=== PATIENT | male | born 1965 | race Caucasian/White ===

== ENCOUNTER 2019-10-27 10:05 | Outpatient (CLI) | payer OTHER, SELFPAY ==
--- NOTE | 2019-10-27 11:00 | NEURO_ITS ---
Patient Number: [id number] Impression: # Complains of left foot pain. # Left posterior tibial nerve slower compared to left peroneal nerve. # Left posterior tibial nerve F-wave is prolonged. # Left sural neuropathy as well. # Clinical correlation recommended. Nerve Conduction Studies Anti Sensory Summary Table Stim Site NR Peak (ms) P-T Amp (?V) Site1 Site2 Delta-P (ms) Dist (cm) Flaco (m/s) Left Sup Fibular Anti Sensory (Ant Lat Mall) 14 cm 3.6 12.8 14 cm Ant Lat Mall 3.6 16.0 44 Left Sural Anti Sensory (Lat Mall) Calf 5.1 4.7 Calf Lat Mall 5.1 16.0 31 Motor Summary Table Stim Site NR Onset (ms) O-P Amp (mV) Site1 Site2 Delta-0 (ms) Dist (cm) Flaco (m/s) Left Peroneal Motor (Vastus Med) Ankle 4.6 1.0 Popit Ankle 9.4 43.0 46 Popit 14.0 3.8 Left Tibial Motor (Abd Meyers Brev) Ankle 5.2 10.0 Knee Ankle 11.8 47.0 40 Knee 17.0 6.2 F Wave Studies NR F-Lat (ms) L-R F-Lat (ms) Left Peroneal (Mrkrs) (EDB) 55.43 Left Tibial (Mrkrs) (Abd Hallucis) 59.53 EMG Side Muscle Nerve Root Ins Act Fibs Amp Dur Recrt Comment Left AntTibialis Dp Br Fibular L4-5 Nml Nml Nml Nml Nml Left Gastroc Tibial S1-2 Nml Nml Nml Nml Nml Left Fibularis Long Sup Br Fibular L5-S1 Nml Nml Nml Nml Nml Left Flex Dig Long Tibial L5-S2 Nml Nml Nml Nml Nml Left Ext Dig Brev Dp Br Fibular L5, S1 Nml Nml Nml Nml Nml MTDD
== END 2019-10-27 10:06 | disposition home or self-care (01) ==
LOC: ANHNEURO 10:07
PROVIDERS: PCP Family Medicine; Visit Provider Orthopaedic Surgery
DX: G57.52 Tarsal tunnel syndrome, left lower limb (principal)
CPT/HCPCS: 95886; 95908

== ENCOUNTER 2021-12-23 16:30 | Outpatient (RCR) | payer OTHER, SELFPAY ==
[2021-10-04 15:03] VITALS: PULSE 57
== END 2021-12-25 18:38 | disposition home or self-care (01) ==
LOC: ANHCPREHAB 16:30
PROVIDERS: PCP Family Medicine; Visit Provider Internal Medicine Cardiovascular Disease
DX: I25.5 Ischemic cardiomyopathy (principal)
CPT/HCPCS: 93798

== ENCOUNTER 2022-12-20 09:38 | Emergency (ER) | payer OTHER, SELFPAY ==
[2022-12-20 09:52] VITALS: BP 140/89; PULSE 62; RESP 18; TEMP 36.3; O2SAT 98
--- NOTE | 2022-12-20 09:57 | ED.GENADULT ---
HPI - General Adult General Chief complaint: Skin/Abscess/Foreign Body Stated complaint: Rash Groin Area Time Seen by Provider: 12/20/22 09:57 Source: patient Mode of arrival: ambulatory Limitations: no limitations History of Present Illness HPI narrative: 57-year-old male patient presents to the [facility] with complaints of a rash to the left groin that he noticed this morning after waking. Patient states not itchy but is slightly painful. Patient denies any new detergents soaps or lotions. Patient denies concerns for STDs. Related Data Home Medications Medication Instructions Recorded Confirmed aspirin 81 mg tablet,delayed 81 mg PO DAILY 08/01/19 12/20/22 release (Adult Low Dose Aspirin) pantoprazole 40 mg tablet,delayed 40 mg PO QAM 08/01/19 12/20/22 release metoprolol succinate 50 mg 50 mg PO DAILY 10/04/21 12/20/22 tablet,extended release 24 hr atorvastatin 20 mg tablet (Lipitor) 20 mg PO DAILY 06/23/22 12/20/22 Allergies Allergy/AdvReac Type Severity Reaction Status Date / Time No Known Allergies Allergy Verified 12/20/22 09:48 Review of Systems Review of Systems: CONSTITUTIONAL: Denies fever, chills, or sweats. EYES: Denies visual changes, redness, or discharge. ENT: Denies rhinorrhea, congestion, sore throat, or otalgia. CARDIOVASCULAR: Denies chest pain, palpitations, or edema. RESPIRATORY: Denies cough or dyspnea. GASTROINTESTINAL: Denies abdominal pain, nausea, vomiting, or diarrhea. GENITOURINARY: Denies dysuria or hematuria. SKIN: Positive rash To left groin since this morning MUSCULOSKELETAL: Denies back pain, joint pain, or myalgia. NEUROLOGIC: Denies headache, numbness, or weakness. PSYCHIATRIC: Denies anxiety or depression. [facility] Past Medical History Medical History Acute post-traumatic headache, not intractable Aftercare following surgery of the musculoskeletal system Arrhythmogenic right ventricular cardiomyopathy Body mass index (BMI) of 19 or less in adult (01/12/18) Cardiomyopathy Chest pain Coronary artery spasm Encounter for wellness examination Hemospermia Hyperlipidemia IFG (impaired fasting glucose) Low back pain Nasal congestion Neck pain Need for hepatitis C screening test Pain in left foot Pain of both heels Plantar fascial fibromatosis of left foot Plantar fasciitis, bilateral Right elbow pain Right heart enlargement Stress Tarsal tunnel syndrome, left lower limb Thoracic spine pain URI, acute Surgical History Surgical History History of elbow surgery left History of hemorrhoidectomy Status post hernia repair Family History Family History Mother Cerebrovascular accident Sibling Family history of coronary artery disease Father Family history of lung cancer, Onset Age: 78 Patient's father is Other Family history of arthritis Family history of malignant neoplasm Hypertension Social History Social History Smoking status: Never smoker Second hand tobacco smoke exposure: No Alcohol intake: current Drinks per week: 3 Alcohol use details: not every week Substance use: never Substance use type: does not use Living arrangements: with family Occupation/Education: occupation Gender identity (if verbalized by the patient): Male Comments At the time of my signature I agree with nursing past medical history, surgical, social, and family history. There is no relevant family history pertinent to the presenting complaint. Exam Narrative: GENERAL: Well-appearing, well-nourished, and in no acute distress. HEAD: Normocephalic, atraumatic. EYES: PERRLA and EOMI. ENT: Nares clear, no rhinorrhea or epistaxis. Mucous membranes moist. NECK: Supple. No lymphadenopathy CHEST: Clear to auscultat
== END 2022-12-20 10:11 | disposition home or self-care (01) ==
PROVIDERS: Emergency Provider Nurse Practitioner Family; PCP Family Medicine
DX: B35.6 Tinea cruris (principal); E78.5 Hyperlipidemia, unspecified; R73.01 Impaired fasting glucose
CPT/HCPCS: 99213; G0463

== ENCOUNTER → 2023-01-08 11:18 | Outpatient (CLI) | payer OTHER, SELFPAY ==
--- NOTE | ~2023-01-08 | XR_ITS ---
Left Knee Technique: AP and lateral views were obtained. Clinical History: Pain Findings: No fracture or dislocation is seen. Osseous alignment is anatomic. Joint spaces are preserv ed without degenerative or erosive change. Soft tissues are unremarkable. No joint effusion is seen. Impression: Unremarkable left knee radiographs. Reviewed, dictated and finalized at location . Impression: Unremarkable left knee radiographs.
== END ==
PROVIDERS: PCP Family Medicine; Visit Provider Family Medicine
DX: M25.562 Pain in left knee (principal)
CPT/HCPCS: 73560

== ENCOUNTER 2023-03-25 02:23 | Day surgery (SDC) | payer OTHER, SELFPAY ==
[2023-03-16 11:36] VITALS: BMI 28.9
--- NOTE | 2023-03-24 16:33 | PM.HPGS ---
History of Present Illness History of Present Illness Consent: Risks, benefits, and alternatives have been discussed and questions answered. Patient agrees to proceed with procedure. Chief complaint: hx colon polyps Narrative: Perry Herring is a 57 year old male who was referred for colon cancer screening. His last colonoscopy was 5 years ago when 2 polyps were removed. Review of Systems Review of Systems: All systems reviewed & are unremarkable except as noted in HPI and below PMFSH Past Medical History Medical History Acute post-traumatic headache, not intractable Aftercare following surgery of the musculoskeletal system Arrhythmogenic right ventricular cardiomyopathy Body mass index (BMI) of 19 or less in adult (01/12/18) Cardiomyopathy Chest pain Coronary artery spasm Encounter for wellness examination Hemospermia Hyperlipidemia IFG (impaired fasting glucose) Low back pain Nasal congestion Neck pain Need for hepatitis C screening test Pain in left foot Pain of both heels Plantar fascial fibromatosis of left foot Plantar fasciitis, bilateral Right elbow pain Right heart enlargement Stress Tarsal tunnel syndrome, left lower limb Thoracic spine pain URI, acute Surgical History Surgical History History of elbow surgery left History of hemorrhoidectomy Status post hernia repair Family History Family History Mother Cerebrovascular accident Sibling Family history of coronary artery disease Father Family history of lung cancer, Onset Age: 78 Patient's father is Other Family history of arthritis Family history of malignant neoplasm Hypertension Social History Social History Smoking status: Never smoker Second hand tobacco smoke exposure: No Alcohol intake: current Drinks per week: 3 Alcohol use details: not every week Substance use: never Substance use type: does not use Living arrangements: with family Occupation/Education: occupation Gender identity (if verbalized by the patient): Male Spiritual care concerns: No Meds Home Medications and Allergies Home Medications Medication Instructions Recorded Confirmed Type aspirin 81 mg tablet,delayed 81 mg PO DAILY 08/01/19 03/25/23 History release (Adult Low Dose Aspirin) pantoprazole 40 mg tablet,delayed 40 mg PO QA 08/01/19 03/25/23 History release metoprolol succinate 50 mg 50 mg PO DAILY 10/04/21 03/25/23 History tablet,extended release 24 hr sildenafil 50 mg tablet 50 mg PO DAILY PRN sexual activity 04/21/22 03/25/23 Rx #30 tabs atorvastatin 40 mg tablet 40 mg PO DAILY 03/16/23 03/25/23 History losartan 25 mg tablet 25 mg PO DAILY 03/16/23 03/25/23 History nitroglycerin 0.3 mg sublingual 0.3 mg sublingual ONCE PRN Chest 03/16/23 03/25/23 History tablet Pain zolpidem 12.5 mg tablet,extended 12.5 mg PO QHS #30 tabs 03/16/23 03/25/23 Rx release,multiphase Allergies Allergy/AdvReac Type Severity Reaction Status Date / Time No Known Allergies Allergy Verified 03/25/23 07:02 Exam Const: General: alert Orientation/consciousness: patient oriented x3 Resp: Auscultation: clear to auscultation bilaterally Cardio: Rhythm: regular rhythm GI: GI Palp: Yes Soft to palpation and No Tenderness to palpation present (GI) Neuro: General: patient oriented x3 Assessment and Plan Assessment and plan (1) Colon cancer screening: Code(s): Z12.11 - Encounter for screening for malignant neoplasm of colon Status: Acute Assessment and Plan: Colonoscopy with possible biopsy or polypectomy or cautery or injection of substances.
[2023-03-25 07:04] VITALS: BP 124/83; PULSE 79; RESP 16; TEMP 36.1; O2SAT 97; BMI 29.2
[2023-03-25] MEDS: LACTATED RINGERS 1,000 ML 150 ML IV CONT (07:15)
--- NOTE | 2023-03-25 08:01 | WPDANESEPPF ---
Anes - Initial Pre Proc Eval Procedure: Operation Date: 03/25/23 08:30 Proposed Procedures p Colonoscopy - Rashid Chowdhury MD Date/Time: 03/25/23 08:01 Surgeon: Rashid Chowdhury MD Pre Op Diagnosis: hx colon polyps Patient Data Age: 57 Gender: M Height: 1.91 m Weight: 106 kg Last Vital Signs Temp 96.9 F L 03/25/23 07:04 Pulse 79 03/25/23 07:04 Resp 16 03/25/23 07:04 BP 124/83 03/25/23 07:04 Pulse Ox 97 03/25/23 07:04 O2 Del Method Room Air 03/25/23 07:04 Allergies Allergy/AdvReac Type Severity Reaction Status Date / Time No Known Allergies Allergy Verified 03/25/23 07:02 Home Medications Medication Instructions Recorded Confirmed Type aspirin 81 mg tablet,delayed 81 mg PO DAILY 08/01/19 03/25/23 History release (Adult Low Dose Aspirin) pantoprazole 40 mg tablet,delayed 40 mg PO QAM 08/01/19 03/25/23 History release metoprolol succinate 50 mg 50 mg PO DAILY 10/04/21 03/25/23 History tablet,extended release 24 hr sildenafil 50 mg tablet 50 mg PO DAILY PRN sexual activity 04/21/22 03/25/23 Rx #30 tabs atorvastatin 40 mg tablet 40 mg PO DAILY 03/16/23 03/25/23 History losartan 25 mg tablet 25 mg PO DAILY 03/16/23 03/25/23 History nitroglycerin 0.3 mg sublingual 0.3 mg sublingual ONCE PRN Chest 03/16/23 03/25/23 History tablet Pain zolpidem 12.5 mg tablet,extended 12.5 mg PO QHS #30 tabs 03/16/23 03/25/23 Rx release,multiphase Patient hx anesthesia problems: none Family hx anesthesia problems: none Results Review: All pre-operative results and documents have been reviewed as part of the pre-operative evaluation. [facility] Past Medical History Medical History Acute post-traumatic headache, not intractable Aftercare following surgery of the musculoskeletal system Arrhythmogenic right ventricular cardiomyopathy Body mass index (BMI) of 19 or less in adult (01/12/18) Cardiomyopathy Chest pain Coronary artery spasm Encounter for wellness examination Hemospermia Hyperlipidemia IFG (impaired fasting glucose) Low back pain Nasal congestion Neck pain Need for hepatitis C screening test Pain in left foot Pain of both heels Plantar fascial fibromatosis of left foot Plantar fasciitis, bilateral Right elbow pain Right heart enlargement Stress Tarsal tunnel syndrome, left lower limb Thoracic spine pain URI, acute Surgical History Surgical History History of elbow surgery left History of hemorrhoidectomy Status post hernia repair Family History Family History Mother Cerebrovascular accident Sibling Family history of coronary artery disease Father Family history of lung cancer, Onset Age: 78 Patient's father is Other Family history of arthritis Family history of malignant neoplasm Hypertension Social History Social History Smoking status: Never smoker Second hand tobacco smoke exposure: No Alcohol intake: current Drinks per week: 3 Alcohol use details: not every week Substance use: never Substance use type: does not use Living arrangements: with family Occupation/Education: occupation Gender identity (if verbalized by the patient): Male Spiritual care concerns: No Anes - Eval Final PreProcedure Day of Procedure 03/25/23 08:01 Patient weight: normal Heart: regular rate and rhythm Lungs: clear to auscultation Airway: Mallampati scale class II Neurological: alert and oriented Last oral intake: >/= 8 hours ASA classification: III Emergent: no Anesthetic plan: proceed Anesthesia type and monitoring: general GIVS and standard monitoring Results Review: All pre-operative results and documents have been reviewed as part of the pre-operative evaluation. Informed Consent: T
[2023-03-25 08:47] VITALS: BP 135/80; PULSE 74; RESP 16; O2SAT 98
[2023-03-25 08:57] VITALS: BP 105/80; PULSE 60; RESP 16; O2SAT 98
[2023-03-25 09:07] VITALS: BP 115/72; PULSE 64; RESP 16; O2SAT 98
== END 2023-03-25 09:18 | disposition home or self-care (01) ==
PROVIDERS: PCP Family Medicine; Visit Provider Internal Medicine Gastroenterology
PROC: 0DJD8ZZ Inspection of Lower Intestinal Tract, Via Natural or Artificial Opening Endoscopic (ICD-10-PCS; CPT 45378; principal; 2023-03-25 08:30)
DX: Z12.11 Encounter for screening for malignant neoplasm of colon (principal); K62.1 Rectal polyp; E78.5 Hyperlipidemia, unspecified; I42.8 Other cardiomyopathies; I51.7 Cardiomegaly; Z79.82 Long term (current) use of aspirin
CPT/HCPCS: 45380; 88305; J2704; J7120

== ENCOUNTER 2024-07-14 01:51 | Day surgery (SDC) | payer OTHER, SELFPAY ==
[2024-07-13 14:41] VITALS: BMI 28.9
[2024-07-14 11:04] VITALS: BP 130/90; PULSE 58; RESP 11; TEMP 36.3; O2SAT 98
[2024-07-14 12:30] VITALS: BP 148/93; PULSE 59; RESP 14; O2SAT 96
--- NOTE | 2024-07-14 12:42 | WPDCARDPROC ---
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 There is clinical concern about the possibility of atrial fibrillation. For further evaluation of this a loop monitor has been recommended Procedure Procedure performed:: Loop recorder implantation Sedation/Medication given:: No sedation Access site:: Left anterior chest wall Estimated blood loss:: Minimal Procedure note:: Patient was brought to the cardiac catheterization have postabsorptive state where the left anterior chest wall was prepped and draped in a sterile fashion. A dixie was made in the 4th interval costal space in the midclavicular line. 20 cc of lidocaine was injected here for to Anesthesia local anesthesia. Following this the [employer] LINQ kit was opened and the puncture tool was used to create a stab wound at the previous position marked. After this the LINQ insertion tool was used to create a tract inferior to the incision and then to a deployed the LINQ device along this tract a subcutaneously following this the pressure was held and a drop bio glue and a bandage was placed on the puncture site. Findings:: The patient received a Medtronic LINQ2 loop recorder model LNQ22 serial number [id number] Conclusion:: Successful uncomplicated implantation of [employer] LINQ loop recorder for evaluation of arrhythmias in this 59-year-old man with arrhythmogenic right ventricular dysplasia Reuben Wei MD [facility]
[2024-07-14 12:45] VITALS: BP 111/74; PULSE 51; RESP 13; O2SAT 96
[2024-07-14 13:05] VITALS: BP 134/83; PULSE 56; RESP 15; O2SAT 96
--- NOTE | 2024-07-14 13:22 | SUR.OPER ---
No bleeding, bruising or swelling at loop insertions site. Pressure drsg intact. Pt denies pain. Instructions reviewed with pt and understanding verbalized. Copy to pt. Pt prefers to call office himself for followup
== END 2024-07-14 13:22 | disposition home or self-care (01) ==
PROVIDERS: PCP Family Medicine; Visit Provider Specialist
PROC: (CPT 33285; principal; 2024-07-14 12:00)
DX: I42.8 Other cardiomyopathies (principal); R00.2 Palpitations
CPT/HCPCS: 33285; C1764; J2003